=== PATIENT | male | born 2000 | race Caucasian/White ===

== ENCOUNTER 2021-02-02 18:41 | Emergency (ER) | payer OTHER ==
[2021-02-02 18:48] VITALS: BP 130/87
--- NOTE | 2021-02-02 19:07 | ED Physician Documentation ---
History of Present Illness - Stated complaint Stated Complaint: ELECTRICAL SHOCK - Chief complaint Chief Complaint: Burn - Additonal information Additional information: 20-year-old male presents to the emergency department for evaluation of an electrical shock. He was working on the avionics section of a grounded airplane. He was using a long metal instrument and may have touched something that was electrified. He felt his shock enter his right middle finger. There was no loss of consciousness. He has no chest pain or shortness of air. There is no exit wound. He denies myalgias. Advised to come to the emergency department with his chief Review of Systems Constitutional: reports: Reviewed and negative Eyes: reports: Reviewed and negative Ears: reports: Reviewed and negative Nose: reports: Reviewed and negative Throat: reports: Reviewed and negative Cardiac: reports: Reviewed and negative Respiratory: reports: Reviewed and negative GI: reports: Reviewed and negative : reports: Reviewed and negative Skin: reports: Lesions (burn wound distal middle finger) Musculoskeletal: reports: Reviewed and negative Neurologic: reports: Reviewed and negative PD PAST MEDICAL HISTORY - Allergies Allergies/Adverse Reactions: Allergies Allergy/AdvReac Type Severity Reaction Status Date / Time No Known Drug Allergies Allergy Verified 02/02/21 18:43 PD ED PE NORMAL - General General: Alert and oriented X 3, No acute distress - HEENT HEENT: PERRL - Neck Neck: Supple, no meningeal sign - Cardiac Cardiac: RRR, No murmur - Respiratory Respiratory: Clear bilaterally - Abdomen Abdomen: Normal bowel sounds, Soft, Non tender, Non distended - Derm Derm: Other (Faint burn wound seen on distal tip of right middle finger. No surrounding erythema. No open lesions.) - Extremities Extremities: No deformity Results - Vitals Vitals: Vital Signs - 24 hr 02/02/21 18:43 Temperature 36.6 C Heart Rate 83 Respiratory 16 Rate Blood Pressure 130/87 H O2 Saturation 99 Oxygen O2 Source Room air - EKG (time done) 1853 Rate: Rate (enter#) (76) Rhythm: NSR Alfred: Normal Intervals: Normal MO QRS: Normal Ischemia: ST elevation c/w repol Compare to prior EKG: Old EKG unavailable Computer interpretation: Agree with computer - Labs Labs: Laboratory Tests 02/02/21 02/02/21 19:09 19:09 Sodium 134 L Potassium 3.4 L Chloride 98 L Carbon Dioxide 27 Anion Gap 9.0 BUN 11 Creatinine 1.0 Estimated GFR (MDRD) 95 Glucose 88 Calcium 9.5 Troponin I High Sens 3.4 PD MEDICAL DECISION MAKING - ED course Complexity details: reviewed results, re-evaluated patient, d/w patient ED course: 20-year-old male presents the emergency department for evaluation after an electrical shock when he was working on the avionics section of an airplane on [place]. He is unsure the voltage that he may have come in contact with. There is a small burn on the distal tip of his middle finger. He however has no myalgias palpitations chest pain shortness of air. Screening EKG is unremarkable. BMP and high-sensitivity troponin also negative. Patient will be discharged emergent return precautions discussed Departure - Departure Disposition: 01 Home, Self Care Clinical Impression: Electrical shock of hand Qualifiers: Encounter type: initial encounter Qualified Code(s): T75.4XXA - Electrocution, initial encounter Condition: Stable Record reviewed to determine appropriate education?: Yes Comments: Alex elliott are seen in the emergency department after an electrical burn injury while working on an airplane. The burn wound on the distal tip of your finger should heal well without any worrisome outcome. Your EKG and screening labs are also normal. If at any point over the next few days you begin to feel palpitations, have a racing heart develop chest pain have severe body aches please return immediately to the ER
[2021-02-02 19:24] LABS: CALCIUM 9.5 mg/dL (8.5-10.3); POTASSIUM 3.4 mmol/L (3.5-5.0)
== END 2021-02-02 20:00 | disposition home or self-care (01) ==
LOC: ED 18:41
DX: T75.4XXA Electrocution, initial encounter (principal); T23.021A Burn of unspecified degree of single right finger (nail) except thumb, initial encounter; W86.1XXA Exposure to industrial wiring, appliances and electrical machinery, initial encounter; Y93.89 Activity, other specified; Y92.138 Other place on military base as the place of occurrence of the external cause; Y99.0 Civilian activity done for income or pay
CPT/HCPCS: 36415; 80048; 84484; 93005; 99283

== ENCOUNTER 2022-08-21 03:11 | Emergency (ER) | payer OTHER ==
--- NOTE | 2022-08-21 04:23 | ED Physician Documentation ---
History of Present Illness - Stated complaint Stated Complaint: R FOOT INJ - Chief complaint Chief Complaint: Ext Problem - Additonal information Additional information: Patient is 22-year-old male presents with sewing needle in his right foot. Stepped on a sewing needle earlier today. The remainder of the needle bent backwards and broke off. Reports immunizations up-to-date. Review of Systems Ten Systems: 10 systems reviewed and negative PD PAST MEDICAL HISTORY - Past Medical History Past Medical History: No Cardiovascular: None Respiratory: None Neuro: None Endocrine/Autoimmune: None GI: None : None HEENT: None Psych: None Musculoskeletal: None Derm: None - Past Surgical History Past Surgical History: No - Present Medications Home Medications: Ambulatory Orders Medication Instructions Recorded Confirmed No Known Home Medications 08/21/22 08/21/22 - Allergies Allergies/Adverse Reactions: Allergies Allergy/AdvReac Type Severity Reaction Status Date / Time No Known Drug Allergies Allergy Verified 08/21/22 03:44 - Social History Does the pt smoke?: No Smoking Status: Never smoker Does the pt drink ETOH?: No Does the pt have substance abuse?: No - Immunizations Immunizations are current?: Yes - POLST Patient has POLST: No PD ED PE NORMAL - General General: Alert and oriented X 3, No acute distress - Respiratory Respiratory: No respiratory distress - Extremities Extremities: No deformity, Other (Visible metallic foreign body on the sole of the right foot.) Results - Vitals Vitals: Vital Signs - 24 hr 08/21/22 08/21/22 03:42 05:00 Temperature 36.6 C Heart Rate 56 L Respiratory 16 16 Rate Blood Pressure 127/68 O2 Saturation 98 Oxygen O2 Source Room air Procedures - FB removal FB location: Subcutaneous FB removal preparation: Local anesthesia-specify (4 cc of 2% lidocaine with epinephrine) Removal method: Foreceps, Incision FB removal aftercare: No complications PD MEDICAL DECISION MAKING - ED course Complexity details: d/w patient ED course: Patient 22-year-old male presenting with a sewing needle in his right foot. Afebrile, hemodynamically stable. Area cleaned, anesthetized and sewing needle removed. Follow-up x-ray did not identify any further metallic foreign body. He was given wound care instructions and follow-up instructions as needed. Departure - Departure Disposition: 01 Home, Self Care Clinical Impression: Foreign body in foot, right Comments: Thank you for allowing us to care for you today at [facility]. Today in the emergency department we removed part of a sewing needle from your right foot. I recommend daily cleaning the area of injury. I recommend twice daily application of a topical antibiotic ointment such as bacitracin or Neosporin. Please monitor the area carefully for any signs of infection. If it anytime you develop any new or worsening symptoms please not hesitate to return.
[2022-08-21] MEDS ORDERED: LIDOCAINE 2%-EPI 1:100000 20 ML MDV SUBQ STA (04:36)
[2022-08-21] MEDS ORDERED: LIDOCAINE MPF 2%-EPI 1:200000 20 ML VIAL ONE ×2 (04:48→05:07)
[2022-08-21 05:41] VITALS: BP 114/74
--- NOTE | 2022-08-21 08:33 | XRAY Report ---
PROCEDURE: Foot 3 View RT INDICATIONS: s/p FB removal (metalic sewing needle TECHNIQUE: 3 views of the foot were acquired. COMPARISON: None FINDINGS: Bones: No fractures or dislocations. No suspicious bony lesions. Soft tissues: No tibiotalar joint effusion. Achilles tendon appears normal. No radiopaque foreign body. IMPRESSION: No acute right foot fracture or dislocation. No radiopaque foreign body is seen. No discrepancies from preliminary reading. Reviewed by: Ry Riley MD on 08/21/2022 8:32 AM PDT Approved by: Ry Riley MD on 08/21/2022 8:32 AM PDT Station ID: [id number]
== END 2022-08-21 05:41 | disposition home or self-care (01) ==
LOC: ED 03:11
DX: S91.341A Puncture wound with foreign body, right foot, initial encounter (principal); W22.09XA Striking against other stationary object, initial encounter
CPT/HCPCS: 28190